=== PATIENT | female | born 1950 | race Caucasian/White ===

== ENCOUNTER 2016-10-29 08:34 | Inpatient (IN) | payer OTHER ==
[~2016-10-29] VITALS: Ht 170.2 cm; Wt 66.7 kg
--- NOTE | 2016-10-29 08:34 | NUR ---
PLACED IN BED 3, TRIAGED AT BEDSIDE BIB AMBULANCE FROM HOME
--- NOTE | 2016-10-29 08:36 | NUR ---
Dr. Field at bedside examining patient. New orders recieved.
--- NOTE | 2016-10-29 08:40 | NUR ---
Patient brought in by ambulance after losing her balance and falling to her left side this AM.Patient is awake, alert, oriented x 4, complains of pain to left lower extermity.Swelling to left knee noted.Patient has full range of motion BUE, unable to move left lower extermity without pain.Denies n/v/d.No other complaints/injury per patient, none noted.
[2016-10-29] MEDS ORDERED: NACL 0.9% 1,000 ML IV ONE (08:45)
[2016-10-29] MEDS ORDERED: KETOROLAC TROMETHAMINE 15 MG VIAL IVP ONE (08:45)
[2016-10-29] MEDS ORDERED: MORPHINE 2 MG/ML INJ. SYRINGE IVP ONE (08:45)
[2016-10-29] MEDS ORDERED: ONDANSETRON HCL 4 MG/2 ML VIAL IVP ONE (08:45)
[2016-10-29 08:47] VITALS: BP 139/88; PULSE 72; RESP 16; TEMP 98.2; O2SAT 99
[2016-10-29 09:08] LABS: BASOPHILS # (AUTO) 0.1 K/uL (0.0-0.2); BASOPHILS % (AUTO) 2.2 % (0.0-2.0); EOSINOPHILS # (AUTO) 0.2 K/uL (0.0-0.4); EOSINOPHILS % (AUTO) 4.6 % (0.0-4.0); HEMATOCRIT 37.7 % (36-48); HEMOGLOBIN 12.5 g/dL (12.0-16.0); LYMPHOCYTES # (AUTO) 1.7 K/uL (1.0-5.5); MEAN CORPUSCULAR HEMOGLOBIN 29 pg (27-31); MEAN CORPUSCULAR HGB CONC 33 % (32-36); MEAN CORPUSCULAR VOLUME 87 fL (79.0-98.0); MONOCYTES # (AUTO) 0.3 K/uL (0.0-1.0); MONOCYTES % (AUTO) 6.7 % (1.7-9.3); NEUTROPHILS # (AUTO) 2.4 K/uL (1.8-7.7); NEUTROPHILS % (AUTO) 50.5 % (40.0-70.0); PLATELET COUNT (AUTO) 88 K/uL (130-430); RED BLOOD CELL COUNT(AUTO) 4.32 MIL/uL (4.2-6.2); RED CELL DISTRIBUTION WIDTH 13.1 % (9.0-15.0); WHITE BLOOD COUNT (AUTO) 4.7 K/uL (4.8-10.8)
[2016-10-29 09:11] LABS: CALCIUM 8.3 mg/dL (8.4-11.0); CREATININE 0.74 mg/dL (0.55-1.30); POTASSIUM 3.6 mmol/L (3.5-5.1)
--- NOTE | 2016-10-29 09:12 | NUR ---
# 16 FR Man catheter with use of sterile technique. Immediate return of 10 cc clear, yellow urine noted. Bedside drainage bag placed below level of bladder. Urine sample collected and sent to lab. Pt tolerated procedure well. Patient arrived with man in place, changed due to standard of practice prior to admission. Patient unable to ambulate self.
[2016-10-29 09:15] LABS: INR 1.2 (0.8-1.2); PROTHROMBIN TIME 13.4 SECS (9.5-12.5)
[2016-10-29 09:16] LABS: ALBUMIN 2.9 g/dL (3.4-4.8); TOTAL BILIRUBIN 0.7 mg/dL (0.0-1.0); TOTAL PROTEIN, SERUM 7.3 g/dL (6.4-8.3)
--- NOTE | 2016-10-29 09:27 | NUR ---
Patient off unit for CT scan.
--- NOTE | 2016-10-29 09:35 | NUR ---
Patient returned from CT scan.Tolerated well, no signs of distress, vss noted.
[2016-10-29 09:49] LABS: BILIRUBIN,URINE NEGATIVE (NEGATIVE); BLOOD, URINE 1+ (NEGATIVE); CLARITY/URINE HAZY (CLEAR); COLOR,URINE YELLOW (YELLOW); GLUCOSE,URINE NEGATIVE (NEGATIVE); KETONES,URINE NEGATIVE (NEGATIVE); LEUKOCYTE ESTERASE ,URINE 2+ (NEGATIVE); NITRITE, URINE POSITIVE (NEGATIVE); PROTEIN URINE NEGATIVE (NEGATIVE)
[2016-10-29 09:55] LABS: BACTERIA,URINE MODERATE /HPF (None Seen); MUCUS,URINE None Seen /LPF (None Seen); RBC,URINE 0-3 /HPF (0-3)
[2016-10-29] MEDS ORDERED: SER25 PO (09:56)
[2016-10-29] MEDS ORDERED: LEVE1000 PO (09:56)
--- NOTE | 2016-10-29 09:56 | NUR ---
Medication reconciliation completed with information provided by Son. Any prior medication reconciliation on file was reviewed and corrected.
[2016-10-29] MEDS ORDERED: cefTRIAXone 1 GM IVPB PREMIX 50 ML IV ONE (10:15)
--- NOTE | 2016-10-29 10:58 | NUR ---
ADMIT NOTE Received pt from ER to the floor with a diagnosis of LEFT HIP FRACTURE. Admission process initiated. patient oriented to pain management, safety and call light-teach back done.
--- NOTE | 2016-10-29 11:00 | NUR ---
Patient will be admitted to care of Dr. Bassett. Admitted to medsurg unit. Will go to room 114 A. Belongings list completed. Summary report printed. Report will be given at bedside. Transfer to [facility]. IV present no sign or symptom of infiltration.
[2016-10-29 11:07] VITALS: BP 142/73; PULSE 78; RESP 16; TEMP 97.3; O2SAT 97
--- NOTE | 2016-10-29 11:10 | NUR ---
NOTES IN BED, AWAKE, ALERT.FAMILY AT BEDSIDE. DR. HUDDLESTON AT BEDSIDE. HAS PAIN ONLY IF SHE MOVE. LOJA CATH DRAINING DELIA URINE. SAFETY PRECAUTION OBSERVED. INSTRUCTED ON HOW TO USE CALL LIGHTS. SAFETY PRECAUTION OBSERVED. WILL MONITOR.
--- NOTE | 2016-10-29 11:42 | NUR ---
ORTHO CONSULT: DR CUNHA (DR LEAL IS O/C) Consult was called, BELLE Garza, she said DR Leal is education specialist, ph [phone] RE Lt hip fracture
[2016-10-29] MEDS ORDERED: ONDANSETRON HCL 4 MG/2 ML VIAL IVP PRN (11:45)
[2016-10-29] MEDS ORDERED: levETIRAcetam 500 MG TABLET PO SCH (11:45)
[2016-10-29] MEDS ORDERED: ACETAMINOPHEN 325 MG TABLET PO PRN (11:45)
[2016-10-29] MEDS ORDERED: DEXTROSE 50% JECT 50 ML DISP.SYRIN IVP PRN (11:45)
--- NOTE | 2016-10-29 11:49 | NUR ---
CALLED DR. PLASCENCIA IS COVERING FOR DR. CUNHA. AWARE OF CONSULTS AND LABS. MD WILL COME AND SEE PT.
--- NOTE | 2016-10-29 11:49 | NUR ---
CARDIO CONSULT: DR SHANE Consult was called, RE cardiac clearance BELLE Billings
[2016-10-29] MEDS ORDERED: levETIRAcetam 500 MG TABLET PO ONE (12:00)
[2016-10-29 12:17] VITALS: BP 142/73; PULSE 78; RESP 16; TEMP 97.3; O2SAT 97
[2016-10-29] MEDS: LEVOFLOXACIN 500 MG/D5W 100 ML IV SCH (12:28)
[2016-10-29] MEDS: LR 1,000 ML IV SCH (12:29)
--- NOTE | 2016-10-29 14:20 | NUR ---
MD ROUNDS SEEN BY DR. PLASCENCIA AT BEDSIDE. PT WILL HAVE SURGERY IN AM AT 0730.
--- NOTE | 2016-10-29 14:25 | NUR ---
CALLED FAMILY TO MAKE AWARE. LEFT VOICEMAIL. PT IS VERY FORGETFUL AT THIS TIME. Addendum: 10/29/16 at 1556 by Juliane Mcdermott RN TO MAKE AWARE OF SURGERY IN AM 10/30 AT 0730.
--- NOTE | 2016-10-29 15:56 | NUR ---
ROUNDS PT IN BED, RESTING. COMFORTABLE AT THIS TIME. NO DISTRESS NOTED.
--- NOTE | 2016-10-29 16:20 | NUR ---
CALLED ATTENDING MD DR HUDDLESTON, RE: ORDER OF 1 DOSE OF LOVENOX PER Landy NAPOLES (ORTHO ). SPOKE TO JAZMÍN
[2016-10-29 16:22] VITALS: BP 131/75; PULSE 74; RESP 16; TEMP 97.9; O2SAT 100
--- NOTE | 2016-10-29 16:45 | NUR ---
PUT ANOTHER CALL TO THE FOOD AND NUTRITION SUPERVISOR OF THE PT, TO GET CONSENT FOR SURGERY SCHEDULED AT 0730 TOMORROW, 10/30/2016. LEFT A VOICE MESSAGES TO THE DAUGHTER AND SON IN LAW.
--- NOTE | 2016-10-29 18:49 | NUR ---
NOTES PT IN BED, EATING DINNER. NO S/S OF PAIN OR DISCOMFORT AT THIS TIME. TRIED TO CALL DAUGHTER AND SON IN LAW AGAIN AND LEFT MESSAGE RE: NEED TO SIGN CONSENT FOR SURGERY. IVF INFUSING WELL. ALL NEEDS MEET. WILL ENDORSE.
--- NOTE | 2016-10-29 19:10 | NUR ---
CHANGE OF SHIFT: pt. still eating dinner when received.awake alert and oriented. pt. schedule for surgery in am for fracture left hip, pt. aware.IVF infusing, man cath intact.no complaints of pain at this time. call light within reach.
[2016-10-29 19:58] VITALS: BP 116/68; PULSE 77; RESP 18; TEMP 98.3; O2SAT 97
[2016-10-29] MEDS ORDERED: ENOXAPARIN SODIUM 40 MG/0.4 ML SYRINGE SUBCUT ONE (20:00)
[2016-10-29] MEDS: levETIRAcetam 500 MG TABLET PO SCH (20:55)
[2016-10-29] MEDS: QUEtiapine FUMARATE 25 MG TABLET PO SCH (20:55)
--- NOTE | 2016-10-29 21:00 | NUR ---
NOTES: schedule meds to be given.repositioned. noted skin discoloration on left lower ext.kept pt. warm with blankets.
[2016-10-29] MEDS: MORPHINE 2 MG/ML INJ. SYRINGE IVP PRN (21:48)
--- NOTE | 2016-10-29 22:33 | NUR ---
ROUNDS: noted pain relief, pt. resting quietly. consent signed earlier prior to pain med . pt. son in law called earlier, and verify if they are aware of the schedule surgery and said they do. pt. reminded to be NPO after midnight.
[2016-10-30] VITALS (8 sets, daily range): BP systolic 100–121; BP diastolic 56–66; PULSE 67–100; RESP 16–18; TEMP 97.1–99; O2SAT 97–99
--- NOTE | 2016-10-30 00:15 | NUR ---
ROUNDS: pt. sleeping when made rounds. no complaints of pain. kept NPO. IVF infusing.
--- NOTE | 2016-10-30 02:26 | NUR ---
ROUNDS: pt. sound asleep. appears comfortable. HOB slightly elevated.
[2016-10-30] MEDS: LR 1,000 ML IV SCH ×2 (04:31→16:21)
--- NOTE | 2016-10-30 05:00 | NUR ---
NOTES; pt. awakened for CHG bath but gets upset for waking her up, partial bath given.kept warm. wants to get back to sleep.
--- NOTE | 2016-10-30 06:45 | NUR ---
CLOSING NOTES: PREOP CHECKLIST COMPLETED. BLOOD SUGAR CHECKED 97. IVF INFUSING AND LOJA CATH INTACT. AWAKENED WITH PAIN ON HER LEFT HIP REJI. ON MOVEMENT. FOR FURTHER CARE AND OBSERVATION.
[2016-10-30 06:58] LABS: BASOPHILS # (AUTO) 0.1 K/uL (0.0-0.2); BASOPHILS % (AUTO) 1.5 % (0.0-2.0); EOSINOPHILS # (AUTO) 0.2 K/uL (0.0-0.4); EOSINOPHILS % (AUTO) 4.6 % (0.0-4.0); HEMATOCRIT 33.6 % (36-48); HEMOGLOBIN 11.1 g/dL (12.0-16.0); LYMPHOCYTES # (AUTO) 1.3 K/uL (1.0-5.5); LYMPHOCYTES % (AUTO) 33.3 % (20.5-51.5); MEAN CORPUSCULAR HEMOGLOBIN 28 pg (27-31); MEAN CORPUSCULAR HGB CONC 33 % (32-36); MEAN CORPUSCULAR VOLUME 86 fL (79.0-98.0); MONOCYTES # (AUTO) 0.3 K/uL (0.0-1.0); MONOCYTES % (AUTO) 7.9 % (1.7-9.3); NEUTROPHILS # (AUTO) 2.1 K/uL (1.8-7.7); NEUTROPHILS % (AUTO) 52.7 % (40.0-70.0); PLATELET COUNT (AUTO) 70 K/uL (130-430); RED BLOOD CELL COUNT(AUTO) 3.91 MIL/uL (4.2-6.2); RED CELL DISTRIBUTION WIDTH 13.2 % (9.0-15.0)
--- NOTE | 2016-10-30 07:14 | NUR ---
NOTES; endorsed to incoming shift Sosa and OR nurse.
[2016-10-30] MEDS ORDERED: TRIMETHOBENZAMIDE HCL 200 MG/2 ML VIAL IM ONE (07:16)
[2016-10-30] MEDS ORDERED: ROCURONIUM BROMIDE 10 MG/ML (ZEMURON) IV ONE (07:16)
[2016-10-30] MEDS ORDERED: SEVOFLURANE 15 MIN GAS INH ONE (07:16)
[2016-10-30] MEDS ORDERED: DEXAMETHASONE SOD PHOSPHATE 4 MG/ML VIAL IVP ONE (07:16)
[2016-10-30] MEDS ORDERED: MIDAZOLAM HCL 5 MG/5 ML VIAL IVP ONE (07:16)
[2016-10-30] MEDS ORDERED: PHENYLEPHRINE HCL 10 MG/ML VIAL (NEOSYNEPHRINE) IV ONE (07:16)
[2016-10-30] MEDS ORDERED: LR 1,000 ML IV.SOLN IV ONE (07:16)
[2016-10-30] MEDS ORDERED: fentaNYL CITRATE 250 MCG/5 ML AMP IV ONE (07:16)
[2016-10-30] MEDS ORDERED: PROPOFOL 200MG/ 20ML VIAL (DIPRIVAN) IV ONE (07:16)
[2016-10-30 07:32] LABS: ALBUMIN 2.3 g/dL (3.4-4.8); CALCIUM 7.8 mg/dL (8.4-11.0); CREATININE 0.74 mg/dL (0.55-1.30); POTASSIUM 4.3 mmol/L (3.5-5.1); TOTAL BILIRUBIN 0.7 mg/dL (0.0-1.0)
--- NOTE | 2016-10-30 07:51 | NUR ---
am notes Pt is in surgery at this time.
[2016-10-30 07:55] LABS: THYROID STIMULATING HORMONE 2.96 uIu/mL (0.34-4.82)
[2016-10-30] MEDS ORDERED: LR 1,000 ML IV ONE (08:20)
[2016-10-30] MEDS: QUEtiapine FUMARATE 25 MG TABLET PO SCH ×2 (08:27→21:31)
[2016-10-30] MEDS: levETIRAcetam 500 MG TABLET PO SCH ×2 (08:27→21:31)
[2016-10-30] MEDS ORDERED: ONDANSETRON HCL 4 MG/2 ML VIAL IVP PRN ×2 (08:30)
[2016-10-30] MEDS ORDERED: ePHEDrine sulfate 50 MG/ML VIAL IVP PRN (08:30)
[2016-10-30] MEDS ORDERED: NALBUPHINE HCL 10 MG/ML AMP IVP PRN (08:30)
[2016-10-30] MEDS ORDERED: NALOXONE HCL 0.4 MG/ML AMP (NARCAN) IVP PRN (08:30)
[2016-10-30] MEDS ORDERED: DIPHENHYDRAMINE INJ 50 MG/ML VIAL IVP PRN (08:30)
[2016-10-30] MEDS ORDERED: fentaNYL CITRATE/PF 100 MCG/2 ML AMP IVP PRN (08:30)
[2016-10-30] MEDS ORDERED: QUEtiapine FUMARATE 25 MG TABLET PO SCH (09:00)
[2016-10-30] MEDS ORDERED: LACTOBACILLUS RHAMNOSUS GG 1 CAP CAPSULE PO ONE (09:30)
--- NOTE | 2016-10-30 10:15 | NUR ---
FROM RR RECEIVED PT FROM RR, DROWSY, ABLE TO RESPOND BY LIGHT SHAKING AND CLOSE HER EYES AGAIN. S/P LEFT HIP ARTHROPLASTY, DRESSING DRY AND INTACT. LOJA CATH DRAINING CLEAR YELLOW URINE. SCD ON THE RT LEG. LR INFUSING. V/S STABLE AT THIS TIME. PT STATED SHE IS CALLED, WARM BLANKET PROVIDED. WILL MONITOR.
[2016-10-30] MEDS: LEVOFLOXACIN 500 MG/D5W 100 ML IV SCH (11:36)
--- NOTE | 2016-10-30 11:44 | NUR ---
ROUNDS/BLOOD SUGAR STILL DROWSY, DENIES ANY PAIN AT THIS TIME. V/S STABLE. NO DISTRESS NOTED. BLOOD SUGAR 179, WILL GIVE INSULIN ONCE PT FULLY AWAKE AND ABLE TO EAT.
[2016-10-30] MEDS: MORPHINE 2 MG/ML INJ. SYRINGE IVP PRN (13:12)
--- NOTE | 2016-10-30 13:15 | NUR ---
PAIN Pt complains of pain on the left leg. medicated with morphine. refused to eat lunch at this time. abductor pillow on. will monitor.
[2016-10-30] MEDS: CEFAZOLIN 2 GM IVPB PREMIX 50 ML IV SCH ×2 (13:54→22:28)
--- NOTE | 2016-10-30 15:00 | NUR ---
IS PT FULLY AWAKE NOW, JUST DONE EATING LUNCH. PAIN IS CONTROLLED AT THIS TIME. TEACH PT HOW TO USE INCENTIVE SPIROMETER. ENC. DEEP BREATHING AND COUGHING EXERCISES. ABLE TO WIGGLE TOES. WILL MONITOR.
[2016-10-30] MEDS: INSULIN REGULAR, HUMAN 100 UNITS/ML, 10 ML VIAL (novoLIN R) SUBCUT PRN ×2 (17:02→22:11)
--- NOTE | 2016-10-30 17:30 | NUR ---
OOB Refused to get up at this time. will try again later.
--- NOTE | 2016-10-30 20:00 | NUR ---
INITIAL NOTES: PATIENT IN BED ,AWAKE ORIENTED X4. FAMILIES AT BEDSIDE. HAS TOLERABLE POST OP PAIN.DRESSING DRY AND INTACT. ABDUCTOR PILLOW IN PLACE. MOVES FEET WELL. PEDAL PULSES STRONG. FEET SKIN SLIGHTLY COLD .SOCKS PLACED. WARM BLANKET PROVIDED. INCENTIVE SPIROMETER USED UP TO 600ML ONLY. IVF INFUSING AT 70ML/HR. SITE CLEAR.
--- NOTE | 2016-10-30 20:05 | NUR ---
DISCUSSED IMPORTANCE OF GETTING OUT OF BED ORDERED BUT REFUSE. VERBALIZED VERY TIRED CAN NOT DO IT. DID INCENTIVE SPIROMETER UP TO 750 ON/L X 6THIS TIME.
--- NOTE | 2016-10-30 21:30 | NUR ---
MEDS ADMIN/ACCU CHECK: WOKE PATIENT UP FOR MEDS. ALL DUE PO MEDS GIVEN WITHOUT DIFFICULTY.
[2016-10-30] MEDS: LACTOBACILLUS RHAMNOSUS GG 1 CAP CAPSULE PO SCH (21:31)
--- NOTE | 2016-10-30 22:05 | NUR ---
IV MEDS /ACCU CHECK: IVPB INFUSED AFTER LOOKING FOR THE MED. BLOOD SUGAR 259MG/DL, COVERED WITH SLIDING SCALE ORDERED.
--- NOTE | 2016-10-30 23:00 | NUR ---
VITAL SIGNS TAKEN BY REECE FRANK. PATIENT IS SLEEPING.
[2016-10-31] MEDS: LR 1,000 ML IV SCH (01:11)
[2016-10-31] MEDS: MORPHINE 2 MG/ML INJ. SYRINGE IVP PRN ×3 (02:35→08:40)
--- NOTE | 2016-10-31 02:35 | NUR ---
PAIN: WOKE PATIENT UP FOR VITAL SIGNS .COMPLAIN OF POST OP PAIN ,LEVEL 7/10. MORPHINE I MG. IV GIVEN SLOWLY.REPOSITIONED. ICE PACK ON INCISION AREA LEFT HIP. LOJA CATHETER DRAINING WELL ,CLEAR LIGHT DELIA COLOR URINE.
[2016-10-31 03:43] VITALS: BP 121/62; PULSE 99; RESP 20; TEMP 97.7; O2SAT 99
[2016-10-31 03:45] VITALS: BP 110/56; PULSE 100; RESP 18; TEMP 99; O2SAT 95
--- NOTE | 2016-10-31 04:40 | NUR ---
PAIN: COMPLAIN OF POST OP PAIN. REPOSITION. MORPHINE 1MG IV GIVEN.
[2016-10-31] MEDS: CEFAZOLIN 2 GM IVPB PREMIX 50 ML IV SCH ×3 (06:05→23:24)
[2016-10-31] MEDS: INSULIN REGULAR, HUMAN 100 UNITS/ML, 10 ML VIAL (novoLIN R) SUBCUT PRN ×2 (06:11→17:24)
--- NOTE | 2016-10-31 06:35 | NUR ---
CLOSING: PATIENT IN BED AWAKE.. COMFORTABLE THIS TIME. IVF INFUSING WELL. LOJA DRAINING DELIA URINE. IS DONE. REMINDED TO GET UP THIS AM. ABDUCTOR PILLOW IN PLACE. ICE PACK TO LEFT HIP. ALL NEEDS WERE ATTENDED.NO ACUTE DISTRESS.BOTH FEET WITH EDEMA ,MOVES FEET FREELY /WITH PULSES.
[2016-10-31 06:46] LABS: CALCIUM 7.3 mg/dL (8.4-11.0); CREATININE 0.97 mg/dL (0.55-1.30); POTASSIUM 4.5 mmol/L (3.5-5.1)
[2016-10-31 07:02] LABS: BASOPHILS % (AUTO) 0.4 % (0.0-2.0); EOSINOPHILS % (AUTO) 0.1 % (0.0-4.0); HEMATOCRIT 22.6 % (36-48); HEMOGLOBIN 7.6 g/dL (12.0-16.0); LYMPHOCYTES # (AUTO) 0.9 K/uL (1.0-5.5); LYMPHOCYTES % (AUTO) 11.2 % (20.5-51.5); MEAN CORPUSCULAR HEMOGLOBIN 29 pg (27-31); MEAN CORPUSCULAR HGB CONC 33 % (32-36); MEAN CORPUSCULAR VOLUME 87 fL (79.0-98.0); MONOCYTES # (AUTO) 0.8 K/uL (0.0-1.0); MONOCYTES % (AUTO) 9.6 % (1.7-9.3); NEUTROPHILS # (AUTO) 6.3 K/uL (1.8-7.7); NEUTROPHILS % (AUTO) 78.7 % (40.0-70.0); RED BLOOD CELL COUNT(AUTO) 2.61 MIL/uL (4.2-6.2); RED CELL DISTRIBUTION WIDTH 13.2 % (9.0-15.0)
--- NOTE | 2016-10-31 07:35 | NUR ---
am rounds: report given at bedside by night nurse micky. patient sleeping during rounds. ivf on going at right upper arm intact. no distress. continue to monitor.
[2016-10-31] MEDS: QUEtiapine FUMARATE 25 MG TABLET PO SCH ×2 (08:43→21:48)
[2016-10-31] MEDS: LACTOBACILLUS RHAMNOSUS GG 1 CAP CAPSULE PO SCH ×2 (08:43→21:53)
[2016-10-31] MEDS: levETIRAcetam 500 MG TABLET PO SCH ×2 (08:44→21:47)
[2016-10-31 08:47] VITALS: BP 107/61; PULSE 94; RESP 19; TEMP 99; O2SAT 98
--- NOTE | 2016-10-31 08:52 | NUR ---
pain meds: c/o post op left hip pain due iv pain meds given per request.
[2016-10-31] MEDS ORDERED: ENOXAPARIN SODIUM 40 MG/0.4 ML SYRINGE SUBCUT SCH (09:00)
--- NOTE | 2016-10-31 09:20 | NUR ---
Nutrition Update Mark Scale 15 noted. Pt admitted for L hip fracture. Diet: regular, Boost Plus BID BMI: 23.2 kg/m2 RD to follow per nutrition care standards.
[2016-10-31 10:13] LABS: PLATELET COUNT (AUTO) 76 K/uL (130-430)
--- NOTE | 2016-10-31 10:34 | NUR ---
DISCHARGE PLANNING Confirmed patient has been on service with [phone]. will follow up.
[2016-10-31] MEDS: SOD FERRIC GLUC COMPLEX/SUC 125 MG in NS 100 ML IV SCH (10:45)
--- NOTE | 2016-10-31 10:52 | NUR ---
rounds: resting. physical therapist placed patient back to bed,pt did side steps only per physical therapist.
[2016-10-31] MEDS: LEVOFLOXACIN 500 MG/D5W 100 ML IV SCH (11:27)
--- NOTE | 2016-10-31 11:27 | NUR ---
accucheck notes: blood sugar taken ,no insulin coverage given per sliding scale.
[2016-10-31 11:31] VITALS: BP 95/39; PULSE 93; RESP 19; TEMP 97.1; O2SAT 96
[2016-10-31 12:50] VITALS: Ht 170.2 cm; Wt 66.7 kg
--- NOTE | 2016-10-31 13:10 | NUR ---
ROUNDS: STABLE. RESTING.
--- NOTE | 2016-10-31 14:20 | NUR ---
PHYSICAL THERAPY CO-SIGN The Physical Therapy Progress Notes documented by [employer] Consultant have been reviewed. Reviewed/Co-Signed by: Erin Becker, PT Documentation Done by: Pelon Vasquez PTA I concur with the documentation of this WHIRLEY OPERATOR. Plan: continue PT as per plan of care. Addendum: 10/31/16 at 1509 by Erin Becker PT Amended: Links added.
--- NOTE | 2016-10-31 15:10 | NUR ---
ROUNDS: STABLE. NEEDS ATTENDED TO.
[2016-10-31 15:34] VITALS: BP 98/51; PULSE 96; RESP 19; TEMP 97.6; O2SAT 98
--- NOTE | 2016-10-31 17:15 | NUR ---
ACCUCHECK NOTES: BLOOD SUGAR TAKEN,WITH INSULIN COVERAGE GIVEN PER SLIDING SCALE.
--- NOTE | 2016-10-31 17:58 | NUR ---
ROUNDS: RESTING. ABDOMINAL PAIN IMPROVED PER PATIENT. Addendum: 10/31/16 at 1759 by Janet Mendoza RN CORRECTED ABOVE NOTES: NOT INTENDED FOR THE ABOVE PATIENT.
[2016-10-31] MEDS ORDERED: CALCIUM CARBONATE/VITAMIN D3 1 TAB TABLET PO ONE (18:30)
--- NOTE | 2016-10-31 18:43 | NUR ---
closing notes: calcium po given as ordered by . stable. no distress.
[2016-10-31 18:56] LABS: BASOPHILS # (AUTO) 0.1 K/uL (0.0-0.2); EOSINOPHILS % (AUTO) 0.8 % (0.0-4.0); HEMOGLOBIN 7.1 g/dL (12.0-16.0); LYMPHOCYTES # (AUTO) 1.1 K/uL (1.0-5.5); LYMPHOCYTES % (AUTO) 17.9 % (20.5-51.5); MEAN CORPUSCULAR HEMOGLOBIN 30 pg (27-31); MEAN CORPUSCULAR HGB CONC 34 % (32-36); MEAN CORPUSCULAR VOLUME 88 fL (79.0-98.0); MONOCYTES # (AUTO) 0.5 K/uL (0.0-1.0); MONOCYTES % (AUTO) 8.1 % (1.7-9.3); NEUTROPHILS # (AUTO) 4.4 K/uL (1.8-7.7); NEUTROPHILS % (AUTO) 71.2 % (40.0-70.0); PLATELET COUNT (AUTO) 68 K/uL (130-430); RED BLOOD CELL COUNT(AUTO) 2.37 MIL/uL (4.2-6.2); RED CELL DISTRIBUTION WIDTH 13.3 % (9.0-15.0); WHITE BLOOD COUNT (AUTO) 6.1 K/uL (4.8-10.8)
--- NOTE | 2016-10-31 19:30 | NUR ---
initial nursing notes: Patient resting in bed with eyes closed. Patient is arousable to verbal stimuli. Patient has IV fluid infusing on the right forearm IV access. Patient denies of having pain.
[2016-10-31 19:31] LABS: HEMATOCRIT 20.8 % (36-48)
[2016-10-31 19:59] VITALS: BP 101/45; PULSE 108; RESP 18; TEMP 99.3; O2SAT 99
--- NOTE | 2016-10-31 21:30 | NUR ---
nursing rounds: Patient stated that she feels very tired. Blood bank still processing blood product.
[2016-10-31] MEDS: CALCIUM CARBONATE/VITAMIN D3 1 TAB TABLET PO SCH (21:54)
--- NOTE | 2016-10-31 23:30 | NUR ---
nursing rounds: Patient asleep in bed. Patient has a Stewart catheter with randi colored urine output. Abductor pillow in between patient's BLE. Will follow-up with the blood bank regarding blood product.
[2016-11-01] VITALS (10 sets, daily range): BP systolic 95–125; BP diastolic 41–71; PULSE 96–113; RESP 17–20; TEMP 97.9–99.8; O2SAT 96–100
--- NOTE | 2016-11-01 00:17 | NUR ---
nursing rounds: Patient resting in bed. Blood transfusion started. Will recheck patient's vital signs in 15 minutes.
--- NOTE | 2016-11-01 00:32 | NUR ---
nursing rounds: Patient calmly resting in bed. Patient is afebrile. Patient denies of having itching. Patient has no shortness of breath. Patient denies of having pain.
--- NOTE | 2016-11-01 02:25 | NUR ---
nursing rounds: Patient sleeping in bed. Patient's breathing pattern is regular and unlabored.
--- NOTE | 2016-11-01 03:30 | NUR ---
nursing rounds: Blood transfusion completed at 0306. Patient currently asleep in bed. No transfusion reaction noted.
[2016-11-01] MEDS: LR 1,000 ML IV SCH ×2 (03:35→11:00)
--- NOTE | 2016-11-01 05:30 | NUR ---
nursing rounds: Patient calmly resting in bed. Call light within patient's reach.
[2016-11-01] MEDS: CEFAZOLIN 2 GM IVPB PREMIX 50 ML IV SCH ×2 (06:35→15:23)
--- NOTE | 2016-11-01 07:25 | NUR ---
am notes; patient lying on the bed,awake,alert and oriented x3. with foam dressing at left hip,dry and intact. with man draining to yellow urine. denies any pain. with pillow wedge in between the legs. continue to monitor.no distress.
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
[2016-11-01 08:25] LABS: BASOPHILS # (AUTO) 0.1 K/uL (0.0-0.2); BASOPHILS % (AUTO) 1.1 % (0.0-2.0); EOSINOPHILS # (AUTO) 0.1 K/uL (0.0-0.4); EOSINOPHILS % (AUTO) 0.7 % (0.0-4.0); HEMOGLOBIN 7.4 g/dL (12.0-16.0); LYMPHOCYTES # (AUTO) 1.6 K/uL (1.0-5.5); LYMPHOCYTES % (AUTO) 20.7 % (20.5-51.5); MEAN CORPUSCULAR HEMOGLOBIN 29 pg (27-31); MEAN CORPUSCULAR HGB CONC 34 % (32-36); MEAN CORPUSCULAR VOLUME 86 fL (79.0-98.0); MONOCYTES # (AUTO) 0.7 K/uL (0.0-1.0); NEUTROPHILS # (AUTO) 5.3 K/uL (1.8-7.7); NEUTROPHILS % (AUTO) 68.5 % (40.0-70.0); RED BLOOD CELL COUNT(AUTO) 2.55 MIL/uL (4.2-6.2); RED CELL DISTRIBUTION WIDTH 13.4 % (9.0-15.0); WHITE BLOOD COUNT (AUTO) 7.8 K/uL (4.8-10.8)
[2016-11-01 08:30] LABS: CALCIUM 7.3 mg/dL (8.4-11.0); CREATININE 0.79 mg/dL (0.55-1.30); HEMATOCRIT 21.9 % (36-48); POTASSIUM 3.9 mmol/L (3.5-5.1)
--- NOTE | 2016-11-01 08:30 | NUR ---
FREEDOM: FREEDOM TO KEEP TODAY PER ORTHO SURGEON DR PLASCENCIA.
--- NOTE | 2016-11-01 08:48 | NUR ---
paged: spoke with dr benitez and relayed critical blood results,with orders give 1 unit of prbc and transfused.
[2016-11-01] MEDS: CALCIUM CARBONATE/VITAMIN D3 1 TAB TABLET PO SCH ×2 (09:01→22:39)
[2016-11-01] MEDS: levETIRAcetam 500 MG TABLET PO SCH ×2 (09:01→22:39)
[2016-11-01] MEDS: QUEtiapine FUMARATE 25 MG TABLET PO SCH ×2 (09:01→22:39)
[2016-11-01] MEDS: LACTOBACILLUS RHAMNOSUS GG 1 CAP CAPSULE PO SCH ×2 (09:02→22:39)
--- NOTE | 2016-11-01 09:08 | NUR ---
physical therapy: physical therapist working with the patient.
[2016-11-01 10:21] LABS: PLATELET COUNT (AUTO) 68 K/uL (130-430)
--- NOTE | 2016-11-01 11:23 | NUR ---
DC Planning: While doing leadership rounding on pt, she had concerns about transition to home. I explained that she most likely will need to consider short term SNF for rehab, as she was only able to take 1 step today. Pt's goal was to be able to walk more. Pt was agreeable to hearing more about snf and also said case mgrs could talk to her sister Dianna about the snfs also. I will ask our cm Michelle and DCP to f/u for SNF preferences. DIMAS RN
--- NOTE | 2016-11-01 11:25 | NUR ---
blood transfusion: vital signs taken prior to transfusion,afebrile and stable. first unit of prbc given as ordered.
--- NOTE | 2016-11-01 11:45 | NUR ---
transfusion: no allergic reaction noted during transfusion.
--- NOTE | 2016-11-01 12:30 | NUR ---
rounds: patient on semi alfonso's position having lunch.
--- NOTE | 2016-11-01 13:44 | NUR ---
rounds: blood transfusion on going. no distress.
--- NOTE | 2016-11-01 14:44 | NUR ---
rounds: blood transfusion done. vital signs taken,afebrile and stable.
[2016-11-01] MEDS: SOD FERRIC GLUC COMPLEX/SUC 125 MG in NS 100 ML IV SCH (15:22)
[2016-11-01] MEDS: LEVOFLOXACIN 500 MG/D5W 100 ML IV SCH (15:22)
--- NOTE | 2016-11-01 15:29 | NUR ---
iv notes: iv leaking.iv re sited at left forearm using g#22,iv antibiotics given as ordered.
--- NOTE | 2016-11-01 15:45 | NUR ---
DC PLANNING This am discussed dc planning w pt @ bedside, not walking very well w PT. States agreeable w SNF for short term rehab. States to call her dtr, Nenita Gonzalez. Called Nenita while @ bedside, ph [phone], no answer left msg that leaving list of SNF's @ bedside & w my direct #. Left list of snf's @ bedside along w my card w direct ext. No answer back from dtr called Nenita & left msg to return call.
--- NOTE | 2016-11-01 16:00 | NUR ---
PHYSICAL THERAPY CO-SIGN The Physical Therapy Progress Notes documented by Hospice Executive Director have been reviewed. I CONCUR W/REACTOR TECHNICIAN NOTE; CONT PER TX PLAN Reviewed/Co-Signed by: Chelsy Tavares PT Documentation Done by: RON GALAN REACTOR TECHNICIAN Addendum: 11/02/16 at 1059 by Chelsy Tavares PT Amended: Links added.
--- NOTE | 2016-11-01 16:56 | NUR ---
blood sugar: blood sugar taken,insulin coverage to follow.
[2016-11-01] MEDS: INSULIN REGULAR, HUMAN 100 UNITS/ML, 10 ML VIAL (novoLIN R) SUBCUT PRN (17:33)
[2016-11-01] MEDS ORDERED: CHOLECALCIFEROL (VITAMIN D3) 2,000 UNIT TABLET PO ONE (18:00)
[2016-11-01] MEDS: MAGNESIUM OXIDE 400 MG TABLET PO SCH ×2 (18:00→22:38)
[2016-11-01] MEDS ORDERED: BISACODYL 5 MG TABLET.DR (DULCOLAX) PO ONE (18:00)
[2016-11-01] MEDS ORDERED: DOCUSATE SODIUM 250 MG CAPSULE PO ONE (18:15)
--- NOTE | 2016-11-01 18:15 | NUR ---
CLOSING NOTES: PATIENT SLEEPING BUT AROUSABLE. NO DISTRESS. CONTINUE TO MONITOR.
--- NOTE | 2016-11-01 18:16 | NUR ---
CONSULTATION PAGED REASON FOR CONSULTATION:THROMBOCYTOPENIA WAS CONSULT CALLED?Y PERSON WHO WAS NOTIFIED:FABI CONSULTING PHYSICIAN:GABY ANN CURRICULUM DEVELOPMENT MANAGER SPECIALTY:ONCOLOGY, HEMATOLOGY CURRICULUM DEVELOPMENT MANAGER PHONE NUMBER:[phone]
--- NOTE | 2016-11-01 20:00 | NUR ---
Initial PM Assessment Pt was received lying in bed fully AAO x4. One family member is visiting at the bedside. Speech is clear and pt is able to make her needs known. No c/o pain or discomfort. Lt Hip dressing is clean, dry and intact with abduction pillow in place. Neurovascular checks to BLE are WNL. Pt is able to move her toes freely and all toes are warm to touch with good capillary refills. Skin is warm and dry to touch. No signs or symptoms of hypoglycemia or hyperglycemia noted. IVF of LR is infusing well in Left Forearm at 70ml/hr without any signs of infiltration. Pt was encouraged to use IS 10x Q 1hr WA and pt verbalized understanding. Pt does not wish to use IS at this time. Fall and safety precautions are in place. Pt was instructed to call for assistance as needed and pt verbalized understanding. Call light is with pt and three side rails are up. Bed is in the lowest and locked positions. Will continue to monitor pt.
[2016-11-01] MEDS: DOCUSATE SODIUM 250 MG CAPSULE PO SCH (22:39)
--- NOTE | 2016-11-01 23:00 | NUR ---
Rounds Pt is resting comfortably in bed. IVF is infusing well in LFA. Call light is with pt and bed alarm is on.
[2016-11-02] VITALS (7 sets, daily range): BP systolic 120–134; BP diastolic 61–78; PULSE 80–100; RESP 15–19; TEMP 97.1–99; O2SAT 96–100
--- NOTE | 2016-11-02 02:00 | NUR ---
Rounds Pt is sleeping without any distress noted. Call light is with pt and bed alarm is on.
[2016-11-02] MEDS: LR 1,000 ML IV SCH ×2 (03:52→15:00)
--- NOTE | 2016-11-02 04:30 | NUR ---
Rounds Pt is sleeping comfortably in bed. IVF is infusing well.
[2016-11-02 06:48] LABS: BASOPHILS # (AUTO) 0.1 K/uL (0.0-0.2); BASOPHILS % (AUTO) 0.9 % (0.0-2.0); EOSINOPHILS # (AUTO) 0.1 K/uL (0.0-0.4); EOSINOPHILS % (AUTO) 1.4 % (0.0-4.0); HEMOGLOBIN 7.4 g/dL (12.0-16.0); IRON (SERUM) 40 mcg/dL (37-145); LYMPHOCYTES # (AUTO) 1.5 K/uL (1.0-5.5); LYMPHOCYTES % (AUTO) 22.7 % (20.5-51.5); MEAN CORPUSCULAR HEMOGLOBIN 29 pg (27-31); MEAN CORPUSCULAR HGB CONC 34 % (32-36); MEAN CORPUSCULAR VOLUME 86 fL (79.0-98.0); MONOCYTES # (AUTO) 0.6 K/uL (0.0-1.0); MONOCYTES % (AUTO) 9.8 % (1.7-9.3); NEUTROPHILS # (AUTO) 4.2 K/uL (1.8-7.7); NEUTROPHILS % (AUTO) 65.2 % (40.0-70.0); RED BLOOD CELL COUNT(AUTO) 2.54 MIL/uL (4.2-6.2); RED CELL DISTRIBUTION WIDTH 12.7 % (9.0-15.0); TOTAL IRON BIND. CAPACITY 97 ug/dL (250-450); WHITE BLOOD COUNT (AUTO) 6.5 K/uL (4.8-10.8)
--- NOTE | 2016-11-02 06:48 | NUR ---
Closing Note Pt is resting comfortably in bed at this time. All pt's needs were attended to. No fall or injury noted this shift. Accucheck 128 this AM and no sliding scale Insulin needed. Will endorse to day shift nurse.
[2016-11-02 06:52] LABS: CALCIUM 7.1 mg/dL (8.4-11.0); CREATININE 0.61 mg/dL (0.55-1.30); POTASSIUM 3.5 mmol/L (3.5-5.1)
--- NOTE | 2016-11-02 07:00 | NUR ---
OPENING NOTE RECEIVED REPORT FROM RETORT OR CONDENSER PRESS OPERATOR NURSE. PATIENT RESTING COMFORTABLY AT THIS TIME. NO COMPLAINTS OF PAIN AT THIS TIME. NO NOTABLE SIGNS OF DISTRESS AT THIS TIME. GOOD PERIPHERAL PULSES POSTERIOR TIBIALIS, AND PEDAL. PATIENT HAS SENSATION IN THE LE, AND CAPILLARY REFILL IS <3SECONDS. ADDUCTOR IS IN PLACE. PATIENTS BED IN LOWEST POSITION WITH TRAPEZE ATTACHMENT, CALL LIGHT WITHIN REACH, AND 2 SIDE RAILS ARE UP FOR SAFETY. PATIENT IS ENCOURAGED TO CALL WHEN GETTING OUT OF BED DUE TO INCREASED RISK OF FALL AFTER PAIN MEDICATION. WILL CONTINUE TO MONITOR PATIENT FOR CHANGES IN STATUS.
[2016-11-02 08:27] LABS: PLATELET COUNT (AUTO) 71 K/uL (130-430)
--- NOTE | 2016-11-02 09:20 | NUR ---
NOTE SPOKE TO DR PLASCENCIA AND NEW ORDER TO DC LOJA WAS NOTED AND CARRIED OUT. PATIENT WAS AWARE AND LOJA WAS REMOVED AND PATIENT TOLERATED IT WELL.
[2016-11-02] MEDS: CALCIUM CARBONATE/VITAMIN D3 1 TAB TABLET PO SCH ×2 (09:23→21:10)
[2016-11-02] MEDS: LACTOBACILLUS RHAMNOSUS GG 1 CAP CAPSULE PO SCH ×2 (09:24→21:10)
[2016-11-02] MEDS: MAGNESIUM OXIDE 400 MG TABLET PO SCH ×3 (09:24→21:10)
[2016-11-02] MEDS: levETIRAcetam 500 MG TABLET PO SCH ×2 (09:24→21:10)
[2016-11-02] MEDS: DOCUSATE SODIUM 250 MG CAPSULE PO SCH ×2 (09:24→21:10)
[2016-11-02] MEDS: CHOLECALCIFEROL (VITAMIN D3) 2,000 UNIT TABLET PO SCH (09:24)
--- NOTE | 2016-11-02 10:00 | NUR ---
1000 NOTE PATIENT RESTING COMFORTABLY AT THIS TIME. NO COMPLAINTS OF PAIN AT THIS TIME. NO NOTABLE SIGNS OF DISTRESS AT THIS TIME. ADDUCTOR IS IN PLACE. PATIENTS BED IN LOWEST POSITION WITH TRAPEZE ATTACHMENT, CALL LIGHT WITHIN REACH, AND 2 SIDE RAILS ARE UP FOR SAFETY. PATIENT IS ENCOURAGED TO CALL WHEN GETTING OUT OF BED DUE TO INCREASED RISK OF FALL AFTER PAIN MEDICATION. WILL CONTINUE TO MONITOR PATIENT FOR CHANGES IN STATUS.
--- NOTE | 2016-11-02 11:14 | NUR ---
DC PLANNING Spoke w pt @ bedside states that discussed SNF for rehab w dtr yest & she took list of SNF's. States dtr is looking into SNF's. Informed pt CM/dc data recovery planner will f/u. Addendum: 11/02/16 at 1521 by Michelle Anne RN Called & left msg w dtr Delmi, ph [phone], to return my call. Received call back from Homer, pt's son in law cell ph [phone], states is Delmi's & returning call for Delmi that best to contact him. States that has the list of SNF's & will decide on one tonight & call & leave msg w preferred SNF. Has my # and gave Karyn's ext as well. Spoke w pt @ bedside & confirmed ok to speak w son in law Homer that dtr not feeling well.
--- NOTE | 2016-11-02 14:30 | NUR ---
PHYSICAL THERAPY CO-SIGN The Physical Therapy Progress Notes documented by Wood Patternmaker have been reviewed. Reviewed/Co-Signed by: Erin Becker, PT Documentation Done by: Gee Cowart PTA I concur with the AM and PM documentation of this ENVIRONMENTAL MARKETING REPRESENTATIVE. Patient is slowly making good and steady progress with PT. Plan: cont as per POC. Addendum: 11/02/16 at 1447 by Erin Becker PT Amended: Links added.
--- NOTE | 2016-11-02 16:32 | NUR ---
DISCHARGE PLANNING dc planning order for [facility] evaluation. Faxed referral. Will follow up.
--- NOTE | 2016-11-02 17:58 | NUR ---
NOTE SPOKE TO DR HUDDLESTON AND NEW ORDER FOR REGULAR DIET WAS NOTED AND CARRIED OUT. PATIENT IS AWARE AND DIETARY WAS CALLED FOR LATE TRAY
--- NOTE | 2016-11-02 19:15 | NUR ---
1800/CLOSING NOTE WAITING TO GIVE REPORT TO DYE REEL OPERATOR HELPER NURSE. PATIENT RESTING COMFORTABLY AT THIS TIME. NO COMPLAINTS OF PAIN AT THIS TIME. NO NOTABLE SIGNS OF DISTRESS AT THIS TIME. ADDUCTOR IS IN PLACE. PATIENTS BED IN LOWEST POSITION WITH TRAPEZE ATTACHMENT, CALL LIGHT WITHIN REACH, AND 2 SIDE RAILS ARE UP FOR SAFETY. PATIENT IS ENCOURAGED TO CALL WHEN GETTING OUT OF BED DUE TO INCREASED RISK OF FALL AFTER PAIN MEDICATION. WILL CONTINUE TO MONITOR PATIENT FOR CHANGES IN STATUS
--- NOTE | 2016-11-02 20:00 | NUR ---
Initial PM Note Pt was received lying in bed fully AAO x4. Speech is clear and pt is able to make her needs known. No c/o pain or discomfort. Lt Hip dressing is clean, dry and intact with abduction pillow in place. Neurovascular checks to BLE are WNL. Pt is able to move her toes freely and all toes are warm to touch with good capillary refills. Skin is warm and dry to touch. No signs or symptoms of hypoglycemia or hyperglycemia noted. IVF of LR is infusing well in Left Forearm at 70ml/hr without any signs of infiltration. Fall and safety precautions are in place. Pt was instructed to call for assistance as needed and pt verbalized understanding. Call light is with pt and three side rails are up. Bed is in the lowest and locked positions. Will continue to monitor pt.
[2016-11-02] MEDS: INSULIN REGULAR, HUMAN 100 UNITS/ML, 10 ML VIAL (novoLIN R) SUBCUT PRN (21:04)
[2016-11-02] MEDS: QUEtiapine FUMARATE 25 MG TABLET PO SCH (21:10)
--- NOTE | 2016-11-02 22:45 | NUR ---
Blood Transfusion 1 unit PRBC transfusion started in left forearm. Pt was instructed on possible side effects of blood transfusion, such as chills, flushing, difficulty breathing, fever and so on. RN staying with pt for the first 15 minutes to monitor pt for any transfusion reaction that may occur.
--- NOTE | 2016-11-02 23:00 | NUR ---
RN Note Blood transfusion is in progress and no transfusion reaction noted. VSS. IV site is without any signs of infiltration. Call light is with pt and bed alarm is on. Pt was instructed to call immediately for any blood transfusion reaction and pt verbalized understanding. Will continue to monitor pt.
--- NOTE | 2016-11-03 | NUR ---
Rounds Pt is resting quietly in bed. Blood transfusion is in progress and no transfusion reaction noted.
[2016-11-03 00:51] VITALS: BP 150/80; PULSE 92; RESP 18; TEMP 97.8; O2SAT 100
--- NOTE | 2016-11-03 01:50 | NUR ---
Blood Transfusion Completion Transfusion of 1 unit PRBC completed and no blood transfusion reaction noted. Pt is resting comfortably in bed.
[2016-11-03 03:43] VITALS: BP 124/61; PULSE 80; RESP 18; TEMP 97.2; O2SAT 97
--- NOTE | 2016-11-03 04:30 | NUR ---
Rounds Pt is sleeping without any distress noted. Fall and safety precautions are in place.
[2016-11-03 06:31] LABS: BASOPHILS % (AUTO) 0.7 % (0.0-2.0); EOSINOPHILS # (AUTO) 0.2 K/uL (0.0-0.4); EOSINOPHILS % (AUTO) 2.4 % (0.0-4.0); HEMATOCRIT 25.9 % (36-48); HEMOGLOBIN 8.6 g/dL (12.0-16.0); LYMPHOCYTES # (AUTO) 1.5 K/uL (1.0-5.5); LYMPHOCYTES % (AUTO) 23.3 % (20.5-51.5); MEAN CORPUSCULAR HEMOGLOBIN 30 pg (27-31); MEAN CORPUSCULAR HGB CONC 33 % (32-36); MEAN CORPUSCULAR VOLUME 90 fL (79.0-98.0); MONOCYTES # (AUTO) 0.6 K/uL (0.0-1.0); MONOCYTES % (AUTO) 9.6 % (1.7-9.3); PLATELET COUNT (AUTO) 89 K/uL (130-430); RED BLOOD CELL COUNT(AUTO) 2.88 MIL/uL (4.2-6.2); RED CELL DISTRIBUTION WIDTH 14.8 % (9.0-15.0); WHITE BLOOD COUNT (AUTO) 6.3 K/uL (4.8-10.8)
[2016-11-03 06:44] LABS: CALCIUM 7.3 mg/dL (8.4-11.0); CREATININE 0.62 mg/dL (0.55-1.30); POTASSIUM 3.6 mmol/L (3.5-5.1)
--- NOTE | 2016-11-03 07:00 | NUR ---
Closing Note Pt is resting comfortably in bed at this time. All pt's needs were attended to. No fall or injury noted this shift. Will endorse to day shift nurse.
[2016-11-03 08:26] VITALS: BP 131/68; PULSE 79; RESP 12; TEMP 97.2; O2SAT 97
--- NOTE | 2016-11-03 08:28 | NUR ---
OPENING NOTE RECEIVED REPORT FROM SEASONER HAND NURSE. PATIENT RESTING COMFORTABLY AT THIS TIME. NO COMPLAINTS OF PAIN AT THIS TIME. NO NOTABLE SIGNS OF DISTRESS AT THIS TIME. ADDUCTOR IS IN PLACE. PATIENTS BED IN LOWEST POSITION WITH TRAPEZE ATTACHMENT, CALL LIGHT WITHIN REACH, AND 2 SIDE RAILS ARE UP FOR SAFETY. PATIENT IS ENCOURAGED TO CALL WHEN GETTING OUT OF BED DUE TO INCREASED RISK OF FALL AFTER PAIN MEDICATION. WILL CONTINUE TO MONITOR PATIENT FOR CHANGES IN STATUS
[2016-11-03] MEDS: LR 1,000 ML IV SCH (08:31)
[2016-11-03] MEDS: CALCIUM CARBONATE/VITAMIN D3 1 TAB TABLET PO SCH (09:50)
[2016-11-03] MEDS: levETIRAcetam 500 MG TABLET PO SCH (09:50)
[2016-11-03] MEDS: MAGNESIUM OXIDE 400 MG TABLET PO SCH ×2 (09:50→16:44)
[2016-11-03] MEDS: DOCUSATE SODIUM 250 MG CAPSULE PO SCH (09:50)
[2016-11-03] MEDS: LACTOBACILLUS RHAMNOSUS GG 1 CAP CAPSULE PO SCH (09:50)
[2016-11-03] MEDS: CHOLECALCIFEROL (VITAMIN D3) 2,000 UNIT TABLET PO SCH (09:51)
[2016-11-03] MEDS: MORPHINE 2 MG/ML INJ. SYRINGE IVP PRN (09:52)
--- NOTE | 2016-11-03 10:14 | NUR ---
DISCHARGE PLANNING Received call from patient family who stated first choice [facility] second choice [facility]. Faxed SNF referral to [facility] [phone]. Will follow up. Addendum: 11/03/16 at 1318 by Karyn BRADFORD Faxed [facility] referral to [facility]. Spoke with Caitlyn at [facility] facility currently has no female beds available. Spoke with Mike in admitting at [facility] patient accepted and will return call with bed assignment. Called patient ganesh Coronel [phone] who is agreeable with patient discharge and transfer to [facility] today and requested return call back with time ambulance will be arranged. Addendum: 11/03/16 at 4912 by Karyn BRADFORD Patient assigned to room [facility] at [facility] RN to report [phone] bed available anytime. RN Ilda made aware. Called [facility] [phone] spoke with Munir arranged BLS transport cotton picker 5pm. Placed transportation packet in nurses station. Called and made Homer, Son aware of time ambulance have been arranged.
--- NOTE | 2016-11-03 10:54 | NUR ---
1000 NOTE PATIENT RESTING COMFORTABLY AT THIS TIME. NO COMPLAINTS OF PAIN AT THIS TIME. PATIENT IS UP TO THE RECLINER WITH PT. NO NOTABLE SIGNS OF DISTRESS AT THIS TIME. PATIENTS BED IN LOWEST POSITION WITH TRAPEZE ATTACHMENT, CALL LIGHT WITHIN REACH, AND 2 SIDE RAILS ARE UP FOR SAFETY. PATIENT IS ENCOURAGED TO CALL WHEN GETTING OUT OF BED DUE TO INCREASED RISK OF FALL AFTER PAIN MEDICATION. WILL CONTINUE TO MONITOR PATIENT FOR CHANGES IN STATUS.
[2016-11-03 11:59] VITALS: BP 111/62; PULSE 79; RESP 16; TEMP 98; O2SAT 99
[2016-11-03 12:44] LABS: FOLATE (FOLIC ACID) 6.6 ng/mL (>3.0)
[2016-11-03] MEDS ORDERED: traMADol HCL HCL 50 MG TABLET (ULTRAM) PO PRN (13:00)
--- NOTE | 2016-11-03 13:45 | NUR ---
PHYSICAL THERAPY CO-SIGN The Physical Therapy Progress Notes documented by Electronic Plotting System Operator have been reviewed. Reviewed/Co-Signed by: Erin Becker,PT Documentation Done by: Gee Cowart, SHOE FITTER (AM) and Pelon Vasquez, SHOE FITTER (PM) I concur with the AM and PM documentations of these 2 SHOE FITTER's. Patient is showing slow but good and steady progress with PT. Plan: continue PT as per plan of care if patient remains in this hospital. Addendum: 11/03/16 at 1423 by Erin Becker PT Amended: Links added.
--- NOTE | 2016-11-03 14:06 | NUR ---
1400 NOTE PATIENT RESTING COMFORTABLY AT THIS TIME. NO COMPLAINTS OF PAIN AT THIS TIME. NO NOTABLE SIGNS OF DISTRESS AT THIS TIME. PATIENTS BED IN LOWEST POSITION WITH TRAPEZE ATTACHMENT, CALL LIGHT WITHIN REACH, AND 2 SIDE RAILS ARE UP FOR SAFETY. PATIENT IS ENCOURAGED TO CALL WHEN GETTING OUT OF BED DUE TO INCREASED RISK OF FALL AFTER PAIN MEDICATION. WILL CONTINUE TO MONITOR PATIENT FOR CHANGES IN STATUS. PATIENT AWAITING DISCHARGE TO [facility], PATIENT TRANSPORT SET UP FOR 1700.
[2016-11-03 15:20] VITALS: BP 121/62; PULSE 74; RESP 14; TEMP 97.5; O2SAT 99
[2016-11-03 16:15] VITALS: BP 125/69; PULSE 78; RESP 16; TEMP 97.5; O2SAT 97
--- NOTE | 2016-11-03 16:17 | NUR ---
DISCHARGE REPORT GIVEN TO XANDER AT [facility]. PATIENTS DAUGHTER JANKI KENT GAVE VERBAL CONSENT TO 2 NURSES FOR TRANSFER. PATIENTS BELONGINGS WERE TAKEN HOME DURING STAY. NO BELONGINGS TRANSFERRED. ARM BANDS REMOVED, IV REMOVED.
[2016-11-03 17:55] LABS: RETICULOCYTE COUNT 3.1 % (0.5-1.5)
--- NOTE | 2016-11-03 18:43 | NUR ---
1800/CLOSING NOTE PATIENT RESTING COMFORTABLY AT THIS TIME. NO COMPLAINTS OF PAIN AT THIS TIME. NO NOTABLE SIGNS OF DISTRESS AT THIS TIME. PATIENT IS READY FOR DISCHARGE TO [facility]. WAITING FOR TRANSPORTATION. PATIENTS BED IN LOWEST POSITION, CALL LIGHT WITHIN REACH, AND 2 SIDE RAILS ARE UP FOR SAFETY. WILL CONTINUE TO MONITOR PATIENT FOR CHANGES IN STATUS.
--- NOTE | 2016-11-03 19:15 | NUR ---
OPENING NOTE REPORT GIVEN AT BEDSIDE. PATIENT IS AWAKE AND ALERT X3. NO ACUTE S/S OF DISTRESS NOTED. PATIENT DENIES PAIN. PATIENT AWAITING TRANSPORT TO [facility]. WILL CONTINUE TO MONITOR.
--- NOTE | 2016-11-03 19:44 | NUR ---
AMBULANCE TRANSPORT [facility] HAS ARRIVED TO TRANSPORT PATIENT TO [facility]. PATIENT IS AWAKE AND ALERT, RESPIRATIONS EVEN AND UNLABORED. PATIENT DENIES PAIN. IV D/C. NO S/S OF ACUTE DISTRESS NOTED.
[2016-11-03] MEDS ORDERED: ENOXAPARIN SODIUM 40 MG/0.4 ML SYRINGE SUBCUT SCH (21:00)
[2016-11-04] MEDS ORDERED: CHOLECALCIFEROL (VITAMIN D3) 2,000 UNIT TABLET PO SCH ×2 (09:00)
[2016-11-07 15:38] LABS: ATYPICAL pANCA <1:20 titer (Neg:<1:20); CYTOPLASMIC (C-ANCA) <1:20 titer (Neg:<1:20); CYTOPLASMIC (P-ANCA) <1:20 titer (Neg:<1:20)
== END 2016-11-03 19:45 | DRG 469 ==
LOC: SED 08:34 → SMU 10:41
PROVIDERS: ADMIT Internal Medicine; ATTEND Internal Medicine
PROC: 0SRS0JZ Replacement of Left Hip Joint, Femoral Surface with Synthetic Substitute, Open Approach (ICD-10-PCS; principal; 2016-10-30 07:30)
PROC: 30233N1 Transfusion of Nonautologous Red Blood Cells into Peripheral Vein, Percutaneous Approach (ICD-10-PCS; 2016-11-01)
DX: S72.002A Fracture of unspecified part of neck of left femur, initial encounter for closed fracture (principal); E43 Unspecified severe protein-calorie malnutrition; N39.0 Urinary tract infection, site not specified; D62 Acute posthemorrhagic anemia; D69.6 Thrombocytopenia, unspecified; F03.90 Unspecified dementia, unspecified severity, without behavioral disturbance, psychotic disturbance, mood disturbance, and anxiety; R31.9 Hematuria, unspecified; Z96.641 Presence of right artificial hip joint; E11.9 Type 2 diabetes mellitus without complications; G40.909 Epilepsy, unspecified, not intractable, without status epilepticus; E53.8 Deficiency of other specified B group vitamins; D46.9 Myelodysplastic syndrome, unspecified; I10 Essential (primary) hypertension; M81.0 Age-related osteoporosis without current pathological fracture; B95.62 Methicillin resistant Staphylococcus aureus infection as the cause of diseases classified elsewhere; R16.1 Splenomegaly, not elsewhere classified; D32.9 Benign neoplasm of meninges, unspecified; W01.0XXA Fall on same level from slipping, tripping and stumbling without subsequent striking against object, initial encounter; Y93.89 Activity, other specified; Y92.098 Other place in other non-institutional residence as the place of occurrence of the external cause; Y99.8 Other external cause status
CPT/HCPCS: 36415; 70450-TC; 71010; 72170-TC; 73502; 73564; 76700-TC; 80048; 80053; 81000-TC; 82272; 82306; 82607; 82728; 82746; 82962; 83036; 83540-TC; 83550-TC; 83605; 84443-TC; 85025; 85044-TC; 85610-TC; 85730-TC; 86022; 86256; 86886; 86900; 86901; 86920; 87040-TC; 87081; 87086; 87186-TC; 88305; 88311; 93005; 93306; 93970; 94010; 96361; 96365; 96375; 97110-GP; 97116-GP; 97530-GP; 99285; C1776; J0690; J0696; J1100; J1650; J1815; J1885; J1956; J2250; J2270; J2370; J2405; J2704; J2916; J3010; J3250; J7030; J7040; J7050; J7120; P9021

== ENCOUNTER 2016-11-07 15:27 | Emergency (ER) | payer OTHER ==
[~2016-11-07] VITALS: Ht 167.6 cm; Wt 63.5 kg
[~2016-11-07 15:27] MED LIST: LEVE1000 PO; SER25 PO
[2016-11-07 15:28] VITALS: BP_SYST 132
[2016-11-07] MEDS ORDERED: CALC-827 PO (15:57)
[2016-11-07] MEDS ORDERED: CHOL50004 PO (15:57)
[2016-11-07] MEDS ORDERED: LOVI40 SQ (15:57)
[2016-11-07] MEDS ORDERED: MAGN400T10 PO (15:57)
[2016-11-07] MEDS ORDERED: LACT1CAP89 PO (15:57)
[2016-11-07] MEDS ORDERED: TRAM50TA92 PO (15:57)
[2016-11-07] MEDS ORDERED: ONDA4TAB22 PO (15:57)
[2016-11-07 19:30] VITALS: BP_SYST 131
== END 2016-11-07 19:30 | disposition home or self-care (01) ==
LOC: SED 15:27
DX: R51 Headache (principal); M25.559 Pain in unspecified hip; E11.9 Type 2 diabetes mellitus without complications; I10 Essential (primary) hypertension; F03.90 Unspecified dementia, unspecified severity, without behavioral disturbance, psychotic disturbance, mood disturbance, and anxiety; Z79.899 Other long term (current) drug therapy; Z88.0 Allergy status to penicillin; Z88.6 Allergy status to analgesic agent; Z91.011 Allergy to milk products
CPT/HCPCS: 70450-TC; 72192-TC; 99284